=== PATIENT | male | born 1965 | race Two or more races ===

== ENCOUNTER 2020-03-21 11:41 | Emergency (ER) | payer MEDICAID ==
[~2020-03-21] VITALS: Ht 175.3 cm; Wt 80.0 kg
[2020-03-21 11:49] VITALS: BP 140/78
== END 2020-03-21 13:00 | disposition home or self-care (01) ==
LOC: ER 11:41
DX: S13.4XXA Sprain of ligaments of cervical spine, initial encounter (principal); S63.92XA Sprain of unspecified part of left wrist and hand, initial encounter; V43.52XA Car driver injured in collision with other type car in traffic accident, initial encounter; Y93.9 Activity, unspecified; Y92.488 Other paved roadways as the place of occurrence of the external cause
CPT/HCPCS: 99283